=== PATIENT | male | born 1960 | race African-American/Black ===

== ENCOUNTER 2025-01-20 19:37 | Emergency (ER) | payer MEDICAID ==
[~2025-01-20] VITALS: Ht 177.8 cm; Wt 73.0 kg
[2025-01-20 19:52] VITALS: TEMP 36.7; O2SAT 97
[2025-01-20 20:46] LABS: BASOPHILS % 0.9 % (0.0-2.0); EOSINOPHILS % 1.3 % (0.0-5.0); HEMATOCRIT. 43.3 % (42.0-52.0); HEMOGLOBIN. 14.5 g/dL (14.0-18.0); LYMPHOCYTES % 41.6 % (20.0-50.0); MEAN CORPUSCULAR HEMOGLOBIN 30.6 pg (28.0-32.0); MEAN CORPUSCULAR HGB CONC 33.4 g/dL (31.0-37.0); MEAN CORPUSCULAR VOLUME 91.8 fL (80.0-94.0); MEAN PLATELET VOLUME 7.4 fl (7.4-10.4); NEUTROPHILS % 51.2 % (40.0-76.0); PLATELET 223 x1000/uL (130-400); RED BLOOD CELL COUNT 4.72 mill/uL (4.7-6.1); RED CELL DISTRIBUTION WIDTH 14.6 % (11.6-14.6); WHITE BLOOD COUNT 4.7 x1000/uL (4.5-11.0)
[2025-01-20 20:52] LABS: CARBON DIOXIDE 28 mEq/L (21-32); CHLORIDE 105 mEq/L (98-107); POTASSIUM 3.8 mEq/L (3.5-5.1); SODIUM 140 mEq/L (136-145)
[2025-01-20 20:53] LABS: CALCIUM 9.4 mg/dL (8.7-10.4)
[2025-01-20 20:58] LABS: CREATININE 1.3 mg/dL (0.6-1.3); D-DIMER 0.28 mg/L FEU (<0.50); GLUCOSE 101 mg/dL (70-105); INR 1.1; PROTHROMBIN TIME 11.9 sec (9.6-11.0); UREA NITROGEN BLOOD 13 mg/dL (9-23)
[2025-01-20 21:01] LABS: TROPONIN I HIGH SENSITIVITY < 4 ng/L (3.0-53)
[2025-01-20 21:55] VITALS: BP 115/63; PULSE 64; RESP 12; O2SAT 98
== END 2025-01-20 22:19 | disposition home or self-care (01) ==
LOC: ER 19:37
DX: R07.89 Other chest pain (principal); I10 Essential (primary) hypertension; F12.90 Cannabis use, unspecified, uncomplicated; F15.90 Other stimulant use, unspecified, uncomplicated; I21.3 ST elevation (STEMI) myocardial infarction of unspecified site; Z88.0 Allergy status to penicillin; Z87.891 Personal history of nicotine dependence; Z79.899 Other long term (current) drug therapy
CPT/HCPCS: 36415; 71045; 80048; 83880; 84484; 85025; 85379; 93005; 99285; 99406